=== PATIENT | male | born 1975 | race Two or more races ===

== ENCOUNTER 2020-10-31 16:58 | Emergency (ER) | payer SELFPAY ==
[~2020-10-31] VITALS: Ht 162.6 cm; Wt 56.5 kg
[2020-10-31 18:38] VITALS: BP 111/74
[2020-10-31] MEDS ORDERED: MORPHINE SULFATE 10 MG/ML VIAL. IM ONE (19:15)
[2020-10-31] MEDS ORDERED: KETOROLAC 60 MG/2 ML VIAL. IM ONE (19:15)
[2020-10-31] MEDS ORDERED: KETO10TA PO (21:25)
[2020-10-31] MEDS ORDERED: OXYC-316 PO (21:25)
--- NOTE | 2020-10-31 21:25 | PHYS DOC ---
Past Medical History Past Medical History: No Pertinent History (RORO BUCKLEY LACE INSPECTOR) Past Surgical History: Other Additional Past Surgical Histo: right ring finger amputation (RORO BUCKLEY LACE INSPECTOR) Smoking Status: Current Every Day Smoker Additional Information: vapes Alcohol Use: Occasionally (RORO BUCKLEY LACE INSPECTOR) General Adult EDM: Chief Complaint: WRIST PAIN HPI: HPI: Patient is a 45 year old male who presents to the ED today with moderate pain to the right wrist that began on Saturday after he fell and fractured his wrist. Patient states he was seen at [facility] and was discharged to follow-up with orthopedic doctor. states they called orthopedic doctor today and they were told to come to the emergency room and have the surgery done today. denies patient having any new injuries. (NAIDARORO Fraser APRN) Review of Systems: Review of Systems: Constitutional: Denies fever or chills. [] Musculoskeletal: Reports right wrist pain Integument: Denies rash. [] Neurologic: Denies headache, focal weakness or sensory changes. [] Psychiatric: Denies depression or anxiety. [] (RORO BUCKLEY LACE INSPECTOR) Heart Score: C/O Chest Pain: N/A Risk Factors: Risk Factors: DM, Current or recent (<one month) smoker, HTN, HLP, family history of CAD, obesity. Risk Scores: Score 0 - 3: 2.5% MACE over next 6 weeks - Discharge Home Score 4 - 6: 20.3% MACE over next 6 weeks - Admit for Clinical Observation Score 7 - 10: 72.7% MACE over next 6 weeks - Early Invasive Strategies (RORO BUCKLEY LACE INSPECTOR) Current Medications: Current Medications Medications (Trade) Dose Ordered Sig/Rachel Start Time Stop Time Status Last Admin Dose Admin Ketorolac Tromethamine (Toradol Im) 60 mg 1X ONCE 10/31/20 19:15 10/31/20 19:16 DC 10/31/20 19:30 60 MG Morphine Sulfate (Morphine Sulfate) 5 mg 1X ONCE 10/31/20 19:15 10/31/20 19:16 DC (RORO BUCKLEY LACE INSPECTOR) Allergies: Allergies: Allergies Coded Allergies Type Severity Reaction Last Updated Verified No Known Drug Allergies 10/31/20 No (RORO BUCKLEY LACE INSPECTOR) Physical Exam: PE: Constitutional: Well developed, well nourished, no acute distress, non-toxic appearance. [] Skin: Warm, dry, no erythema, no rash. [] Back: No tenderness, no CVA tenderness. [] Extremities: Right upper extremity is in a splint with moderate swelling noted on the 4 fingers on the right hand, patient has chronically missing fifth finger. Full range of motion to the right fingers. Splint was removed. +2 right radial pulse. Cap refill less than 2 seconds to right fingers. Adequate sensation to the right fingers. Neurologic: Alert and oriented X 3, normal motor function, normal sensory function, no focal deficits noted. [] Psychologic: Affect normal, judgement normal, mood normal. [] (RORO BUCKLEY APRN) Current Patient Data: Vital Signs: Vital Signs Date Time Temp Pulse Resp B/P (MAP) Pulse Ox O2 Delivery O2 Flow Rate FiO2 10/31/20 18:38 99.0 80 18 111/74 (86) 98 Room Air 99.0 (RORO BUCKLEY APRN) EKG: EKG: [] (RORO BUCKLEY APRN) Course & Med Decision Making: Course & Med Decision Making Pertinent Labs and Imaging studies reviewed. (See chart for details) This is a 45-year-old male patient presented to the ED today with right wrist pain that began on Saturday after he fell and fractured his wrist. Apparently they called the orthopedic doctor and was told to come to the ED to get surgery. admits they cannot afford the co-pay of this procedure through the doctor's office. is very upset right now stating they need to see an orthopedic surgeon and they need the procedure done. I spent quite a bit of time talking to the and patient explaining to them the procedure of having surgery. Informed them they have to call the orthopedic doctor and get an appointment and then they will be set up for surgery as an outpatient. refused to have patient resplinted. We had to apply an Adilson bandage over the splint that was loosened. Neurovascular exam is intact to the right fingers. Patient was discharged to home after receiving Toradol with very good relief. (RORO BUCKLEY APRN) Course & Med Decision Making The chart was reviewed. I did not see the patient. The P evaluated and treated the patient independently. I was available for consult. (MAO PASCAL DO) Yessi Disclaimer: Yessi Disclaimer: This electronic medical record was generated, in whole or in part, using a voice recognition dictation system. (RORO BUCKLEY APRN) Departure Departure Impression: Primary Impression: Right wrist pain Disposition: HOME / SELF CARE / HOMELESS Condition: STABLE Referrals: NO PCP (PCP) NUNO SANTOS MD follow up as soon as possible Patient Instructions: Wrist Pain, [id number] Additional Instructions: Please ice and elevate the wrist. Please take the prescribed pain medicine as needed for pain Please call the orthopedic doctor tomorrow and follow-up as soon as possible Scripts Ketorolac Tromethamine (KETOROLAC TROMETHAMINE) 10 Mg Tablet 1 TAB PO DAILY, #5 TAB Prov: RORO BUCKLEY APRN 10/31/20 Oxycodone Hcl/Acetaminophen (ENDOCET 7.5-325 MG TABLET) 1 Each Tablet 1 TAB PO PRN Q6HRS PRN for PAIN MDD 4 Tablet(s), #30 TAB 0 Refills Prov: RORO BUCKLEY APRN 10/31/20 RORO BUCKLEY APRN October 31, 2020 21:25 MAO PASCAL DO November 03, 2020 17:59
== END 2020-10-31 21:43 | disposition home or self-care (01) ==
LOC: ER 16:58
DX: M25.531 Pain in right wrist (principal)
CPT/HCPCS: 96372; 99283; J1885